=== PATIENT | male | born 1995 | race Caucasian/White ===

== ENCOUNTER 2018-02-23 22:05 | Emergency (ER) | payer OTHER ==
[2018-02-23] MEDS: ONDANSETRON 4 MG ORAL DISINTEGRATING TAB (Q0162 PER 1MG) PO (22:48)
[2018-02-23 23:04] LABS: KETONE, URINE AUTO RFX NEGATIVE (NEGATIVE); LEUKOCYTE ESTERASE UR AUTO RFX NEGATIVE (NEGATIVE); NITRITE, URINE AUTO RFX NEGATIVE (NEGATIVE); RBC, URINE AUTO RFX 1 /HPF (0-3); SPECIFIC GRAVITY UR AUTO RFX 1.003 (1.002-1.035); SQUAM EPITHELIAL CELL UR AURFX 0 /HPF (0-6); WBC, URINE AUTO RFX 2 /HPF (0-3)
[2018-02-23] MEDS ORDERED: ONDANSETRON 4 MG ORAL DISINTEGRATING TAB (Q0162 PER 1MG) PO (23:30)
== END 2018-02-23 23:35 | disposition home or self-care (01) ==
LOC: M ED 22:05
DX: R11.2 Nausea with vomiting, unspecified (principal)
CPT/HCPCS: Q0162

== ENCOUNTER → 2019-04-01 | Outpatient (REF) | payer OTHER ==
[~2019-04-01] MED LIST: AMOX500C PO; HYDR-3713 PO; IBUP-1022 PO; ZOFR4TAB14 PO
[2019-04-01 11:20] LABS: SEMEN APPEARANCE OPAQUE (OPAQUE); SEMEN VOLUME 1.1 ML (2.0-5.0); SEMEN WBC <=1 M/ml (<=1 M/ml)
[2019-04-01 11:31] LABS: SEMEN VISCOSITY VISCOUS (LIQUID)
== END ==
LOC: M LAB REF 11:00
PROVIDERS: ATTEND Obstetrics & Gynecology
DX: Z31.41 Encounter for fertility testing (principal)

== ENCOUNTER 2020-09-06 11:46 | Emergency (ER) | payer OTHER ==
[~2020-09-06] VITALS: Ht 170.2 cm; Wt 87.9 kg
[2020-09-06 11:46] VITALS: BP 140/82
--- NOTE | 2020-09-06 12:30 | REP ---
INDICATION: fell, pain. COMPARISON: None. TECHNIQUE: Left shoulder three views. FINDINGS: There is no fracture or dislocation. The glenohumeral and acromioclavicular articulations are unremarkable. There are no calcifications or foreign bodies. Mineralization is normal. IMPRESSION: Negative plain film study of the left shoulder. <Electronically signed by Misael Alfonso > 09/06/20 [id number]
== END 2020-09-06 12:44 | disposition home or self-care (01) ==
LOC: M ED 11:46
DX: S49.92XA Unspecified injury of left shoulder and upper arm, initial encounter (principal); V00.311A Fall from snowboard, initial encounter; Y92.830 Public park as the place of occurrence of the external cause; Y93.23 Activity, snow (alpine) (downhill) skiing, snowboarding, sledding, tobogganing and snow tubing